=== PATIENT | female | born 1950 | race African-American/Black ===

== ENCOUNTER 2019-03-07 04:39 | Emergency (ER) | payer OTHER ==
[~2019-03-07] VITALS: Ht 170.2 cm; Wt 67.1 kg
[~2019-03-07 04:39] MED LIST: AUGMENTIN 875875 MG PO; HYDROCHLOROTHIA25 M2 PO; MECLIZINE HCL25 M1 PO; NAPROSYN500 MG PO; NORCO 5-325 TA1 EACH PO; ZOCOR 20 MG TAB20 M1 PO
[2019-03-07] MEDS ORDERED: MEDROLDOSEPACK PO (04:52)
[2019-03-07] MEDS ORDERED: DIPHENHIST50 MG PO (04:52)
[2019-03-07 05:49] VITALS: BP 122/71
== END 2019-03-07 05:49 | disposition home or self-care (01) ==
LOC: ER 04:39
DX: L52 Erythema nodosum (principal); E78.00 Pure hypercholesterolemia, unspecified; K64.9 Unspecified hemorrhoids; Z90.710 Acquired absence of both cervix and uterus; Z88.5 Allergy status to narcotic agent

== ENCOUNTER 2020-01-09 19:02 | Emergency (ER) | payer OTHER ==
[~2020-01-09] VITALS: Ht 167.6 cm; Wt 66.2 kg
[~2020-01-09 19:02] MED LIST changes: +DIPHENHIST50 MG PO; +MEDROLDOSEPACK PO
[2020-01-09] MEDS ORDERED: ZOFRAN ODT4 MG PO (20:41)
[2020-01-09 21:01] VITALS: BP 126/76
== END 2020-01-09 21:00 | disposition home or self-care (01) ==
LOC: ER 19:02
DX: R11.10 Vomiting, unspecified (principal); R51 Headache; R11.2 Nausea with vomiting, unspecified; R42 Dizziness and giddiness; R05 Cough; J02.9 Acute pharyngitis, unspecified; K21.9 Gastro-esophageal reflux disease without esophagitis; I10 Essential (primary) hypertension; E78.00 Pure hypercholesterolemia, unspecified